=== PATIENT | female | born 1970 | race Caucasian/White ===

== ENCOUNTER → 2020-07-03 | Outpatient (CLI) | payer MEDICAID ==
[~2020-07-03] MED LIST: ASPI-1497 PO; CHOL400D7 PO; FAMO20TA8 PO; INSU100V3 SUBCUT; METF-416 PO; SERT50TA PO; TOPI25TA48 PO
== END | disposition home or self-care (01) ==
LOC: LAB 08:48
PROVIDERS: ATTEND Specialist
DX: Z01.812 Encounter for preprocedural laboratory examination (principal); Z20.822 Contact with and (suspected) exposure to COVID-19
CPT/HCPCS: 87426

== ENCOUNTER 2021-11-04 06:45 | Emergency (ER) | payer MEDICAID ==
[~2021-11-04] VITALS: Ht 154.9 cm; Wt 109.8 kg
[2021-11-04] MEDS ORDERED: ONDANSETRON HCL 4MG/2ML INJ IV STA (07:45)
[2021-11-04] MEDS ORDERED: PANTOPRAZOLE SODIUM 40 MG/VIAL IV STA (07:45)
[2021-11-04] MEDS ORDERED: MORPHINE SULFATE 4 MG/ML CPJ (NOT FOR IM USE) IV STA (07:45)
[2021-11-04] MEDS ORDERED: SODIUM CHLORIDE 0.9% 1,000 ML IV ONE (07:45)
[2021-11-04 08:04] VITALS: BP 139/64
[2021-11-04 08:06] LABS: BASOPHILS % 0.3 % (0.0-2.0); EOSINOPHILS % 0.1 % (0.0-5.0); HEMATOCRIT. 38.2 % (36.0-48.0); LYMPHOCYTES % 14.4 % (20.0-50.0); MEAN CORPUSCULAR VOLUME 57.2 fL (81.0-99.0); MEAN PLATELET VOLUME 9.1 fl (7.4-10.4); MONOCYTES % 4.9 % (2.0-8.0); NEUTROPHILS % 80.3 % (40.0-76.0); PLATELET 241 x1000/uL (130-400); RED BLOOD CELL COUNT 6.67 mill/uL (4.2-5.4); RED CELL DISTRIBUTION WIDTH 15.9 % (11.6-14.6)
[2021-11-04 08:07] LABS: CLARITY URINE CLEAR (CLEAR); COLOR URINE YELLOW (YELLOW); KETONES URINE 1+ (NEGATIVE); LEUKOCYTE ESTERASE URINE 1+ (NEGATIVE); NITRITE URINE NEGATIVE (NEGATIVE); OCCULT BLOOD URINE NEGATIVE (NEGATIVE); PROTEIN URINE NEGATIVE (NEGATIVE)
[2021-11-04 08:16] LABS: CHLORIDE 99 mEq/L (98-107)
[2021-11-04] MEDS ORDERED: CEFTRIAXONE 1 G PREMIX 50 ML IV SCH (09:00)
[2021-11-04 09:10] LABS: PLATELET ESTIMATE NORMAL
[2021-11-04] MEDS ORDERED: INSULIN REGULAR (HUMULIN R) 300UNITS/3ML VIAL SUBCUT SCH (09:15)
[2021-11-04] MEDS ORDERED: ONDA4TAB11 PO (11:11)
[2021-11-04] MEDS ORDERED: CEPH500T MT (11:11)
[2021-11-04] MEDS ORDERED: PROT40 MT (11:11)
== END 2021-11-04 11:30 | disposition home or self-care (01) ==
LOC: ER 06:45
DX: K29.70 Gastritis, unspecified, without bleeding (principal); N39.0 Urinary tract infection, site not specified; E11.9 Type 2 diabetes mellitus without complications; Z90.49 Acquired absence of other specified parts of digestive tract; Z79.899 Other long term (current) drug therapy
CPT/HCPCS: 36415; 74176; 80053; 81003; 83690; 85025; 93005; 96365; 96372; 96375; 99285; C9113; J0696; J1815; J2270; J2405; J7030